=== PATIENT | male | born 1960 | race Caucasian/White ===

== ENCOUNTER 2024-04-01 14:17 | Emergency (ER) | payer MEDICARE, SELFPAY ==
[2024-04-01 14:34] VITALS: BP 140/76; PULSE 69; RESP 16; TEMP 36.8; O2SAT 95
--- NOTE | 2024-04-01 14:36 | ED.EYEPROB ---
HPI - Eye Problem General Chief complaint: Eye Problems Stated complaint: left eye History of Present Illness HPI Narrative: Patient presents with a left eye problem. States 2 days ago he was mowing any thinks he might have gotten some in his left eye. Eye is reddened with some drainage and states it was matted shut this morning. Patient states he has rinse the eye several times at home and stills feels if there is something in his eye. Related Data Home Medications Medication Instructions Recorded Confirmed benazepril 40 mg tablet 40 mg PO DAILY 04/01/24 04/01/24 carvedilol 25 mg tablet 25 mg PO BID 04/01/24 04/01/24 cyanocobalamin (vitamin B-12) 500 500 mcg PO DAILY 04/01/24 04/01/24 mcg tablet levetiracetam 750 mg tablet mg PO 04/01/24 pravastatin 40 mg tablet 40 mg PO DAILY 04/01/24 04/01/24 pregabalin 100 mg capsule 100 mg PO BID 04/01/24 04/01/24 spironolactone 25 mg tablet 25 mg PO DAILY 04/01/24 04/01/24 Allergies Allergy/AdvReac Type Severity Reaction Status Date / Time niacin Allergy Unknown Verified 04/01/24 14:31 Review of Systems Review of Systems: CONSTITUTIONAL: Denies fever, chills, or sweats. EYES: Denies visual changes, redness, or discharge. ENT: Denies rhinorrhea, congestion, sore throat, or otalgia. CARDIOVASCULAR: Denies chest pain, palpitations, or edema. RESPIRATORY: Denies cough or dyspnea. GASTROINTESTINAL: Denies abdominal pain, nausea, vomiting, or diarrhea. GENITOURINARY: Denies dysuria or hematuria. SKIN: Denies rash or itching. MUSCULOSKELETAL: Denies back pain, joint pain, or myalgia. NEUROLOGIC: Denies headache, numbness, or weakness. PSYCHIATRIC: Denies anxiety or depression. PMFSH Comments At time of signature, agree with nursing past medical, surgical, social and family history. There is no relevant family history pertinent to the presenting complaint Exam Narrative: GENERAL: Well-appearing, well-nourished, and in no acute distress. HEAD: Normocephalic, atraumatic. EYES: PERRLA and EOMI. ENT: Nares clear, no rhinorrhea or epistaxis. Mucous membranes moist. NECK: Supple. CHEST: Clear to auscultation. No respiratory distress. HEART: Regular rate and rhythm. No murmur heard. Normal peripheral pulses. ABDOMEN: Soft, nontender, nondistended, normal active bowel sounds. EXTREMITIES: Normal range of motion. No edema. SKIN: Warm, dry, no rash. NEURO: No focal deficits. Alert and oriented x3. Wall Coma Scale Eye Opening: Spontaneous 4 Wall Coma Scale Motor: Obeys Commands 6 Amalia Coma Scale Verbal: Oriented 5 Wall Coma Scale Total 15 Course Course Level of Care: Express Care Visit Procedures Other Procedure Procedure 1: Other Procedure: left eye stained and examined under farfan lamp abrasion to left cornea Discharge Plan Discharge Clinical Impression: Corneal abrasion Patient Disposition: Home, Self-Care Condition: Stable Instructions: Antibiotic Form, How to Use Eye Drops (ED) Additional Instructions: Cold compresses to the eyes for comfort May need warm compresses to remove debris in the morning When cleaning the eyes used a washcloth in one direction then change washcloths or use a cotton ball in one direction and then his cotton balls Eyedrops as directed--may be more soothing if left in the refrigerator Do not share medicine--do not touch the eye with the medicine Tylenol or ibuprofen for pain Avoid screen time--television, computer, tablet or phone. Also no reading or driving Follow-up with PCP or leacher as directed -If you have any worsening of symptoms or any other concerns please go to the ED immediately. Prescriptions: New ofloxacin [Ocuflox] 0.3 % drops 2 drp LEFT EYE QID Qty: 5 0RF No Action carvedilol 25 mg tablet 25 mg PO BID pravastatin 40 mg tablet 40 mg PO DAILY cyanocobalamin (vitamin B-12) 500 mcg tablet 500 mcg PO DAILY levetiracetam 750 mg tablet PO
[2024-04-01 14:45] VITALS: BP 140/76; PULSE 69; RESP 16; TEMP 36.8; O2SAT 95
== END 2024-04-01 14:42 | disposition home or self-care (01) ==
PROVIDERS: Emergency Provider Nurse Practitioner Family
DX: S05.02XA Injury of conjunctiva and corneal abrasion without foreign body, left eye, initial encounter (principal); X58.XXXA Exposure to other specified factors, initial encounter; G40.909 Epilepsy, unspecified, not intractable, without status epilepticus; E78.00 Pure hypercholesterolemia, unspecified; I10 Essential (primary) hypertension; E11.9 Type 2 diabetes mellitus without complications; Z86.73 Personal history of transient ischemic attack (TIA), and cerebral infarction without residual deficits
CPT/HCPCS: 99203; G0463